=== PATIENT | female | born 1965 | race Caucasian/White ===

== ENCOUNTER → 2023-01-01 | Outpatient (CLI) | payer OTHER | END | disposition home or self-care (01) | LOC: LAB 16:29 → LAB SHORT 16:29 | DX: J06.9 Acute upper respiratory infection, unspecified (principal) | CPT/HCPCS: 87077; 87081; 87185 ==

== ENCOUNTER 2023-05-22 13:12 | Day surgery (SDC) | payer OTHER ==
[~2023-05-22] VITALS: Ht 172.7 cm; Wt 73.7 kg
[2023-05-22] MEDS ORDERED: Prozac20 MG (13:39)
[2023-05-22] MEDS ORDERED: INSULANI (13:40)
[2023-05-22] MEDS ORDERED: NOVOLOG100 UNIT/3 (13:40)
[2023-05-22] MEDS ORDERED: ATOR10 (13:41)
[2023-05-22 15:19] VITALS: BP 119/78
[2023-05-23] MEDS ORDERED: ERYT.5TO LEFTEYE (00:07)
== END 2023-05-22 15:13 | disposition home or self-care (01) ==
LOC: ORSCSDS 13:12
PROVIDERS: Internal Medicine Gastroenterology
PROC: 0DJD8ZZ Inspection of Lower Intestinal Tract, Via Natural or Artificial Opening Endoscopic (ICD-10-PCS; principal; 2023-05-22 15:00)
DX: Z12.11 Encounter for screening for malignant neoplasm of colon (principal); Z86.010 Personal history of colon polyps; Z83.71 Family history of colonic polyps; K64.8 Other hemorrhoids; K64.4 Residual hemorrhoidal skin tags; K57.30 Diverticulosis of large intestine without perforation or abscess without bleeding; E10.8 Type 1 diabetes mellitus with unspecified complications; F32.A Depression, unspecified; Z79.4 Long term (current) use of insulin; Z79.899 Other long term (current) drug therapy
CPT/HCPCS: 82947; J0461; J2001; J2405; J2704; J7120; Q9968

== ENCOUNTER 2023-05-22 21:37 | Emergency (ER) | payer OTHER ==
[~2023-05-22] VITALS: Ht 172.7 cm; Wt 72.6 kg
[~2023-05-22 21:37] MED LIST: ATOR10; INSULANI; NOVOLOG100 UNIT/3; Prozac20 MG
[2023-05-22 22:27] VITALS: BP 146/86
[2023-05-23] MEDS ORDERED: ERYT.5TO LEFTEYE (00:07)
== END 2023-05-23 00:12 | disposition home or self-care (01) ==
LOC: ER 21:37
DX: H01.006 Unspecified blepharitis left eye, unspecified eyelid (principal); Z88.0 Allergy status to penicillin; Z88.8 Allergy status to other drugs, medicaments and biological substances; Z79.4 Long term (current) use of insulin; Z79.899 Other long term (current) drug therapy
CPT/HCPCS: 99282; A9270